=== PATIENT | male | born 1950 | race Caucasian/White ===

== ENCOUNTER 2020-06-21 14:11 | Outpatient (CLI) | payer MEDICARE ==
--- NOTE | 2020-06-21 15:06 | XRAY Report ---
PROCEDURE: Hip w/Pelvis 2-3V RT INDICATIONS: RIGHT HIP STRAIN TECHNIQUE: AP pelvis with lateral view(s) of the right hip(s). COMPARISON: None. FINDINGS: Bones: No fractures or dislocations. Pelvic ring appears intact. No suspicious bony lesions. Soft tissues: The visualized bowel gas pattern is normal. No suspicious soft tissue calcifications. IMPRESSION: There is a mild degree of hip joint osteoarthritis symmetric bilaterally but no evidence of prior trauma, and there is also degenerative disc disease that is noted at L4-5 there is moderate in severity, raising a question of whether referred pain from the lumbosacral spine to the hip is ca use of the asymmetric right-sided predominant pain syndrome. Reviewed by: Vaibhav Martínez MD on 06/21/2020 3:05 PM PDT Approved by: Vaibhav Martínez MD on 06/21/2020 3:05 PM PDT Station ID: [id number]
== END 2020-06-21 14:12 | disposition home or self-care (01) ==
LOC: DI.S 14:11
PROVIDERS: ATTEND Family Medicine
DX: M16.0 Bilateral primary osteoarthritis of hip (principal); M47.816 Spondylosis without myelopathy or radiculopathy, lumbar region

== ENCOUNTER 2020-07-27 14:42 | Outpatient (CLI) | payer MEDICARE ==
--- NOTE | 2020-07-27 15:16 | XRAY Report ---
PROCEDURE: Lumbar Spine 2 View INDICATIONS: LUMBAR STRAIN, DJD OF LUMBAR TECHNIQUE: 3 views of the lumbar spine were acquired. COMPARISON: None. FINDINGS: Bones: 5 [id number] vertebrae are present. There is there is trace retrolisthesis of L2. Sever e multilevel disc space narrowing is present throughout the lumbar spine most severe at L5-S1. Severe foraminal narrowing is noted L5-S1, moderate to severe L4-5. Multilevel anterior osteophytes are pre sent bridging at T12-L1. No vertebral body compression fractures. No suspicious bony lesions. Soft tissues: Overlying bowel gas pattern is normal. No suspicious soft tissue calcifications. IMPRESSION: Degenerative changes most notable at L5-S1. Reviewed by: Bhavana Choe MD on 07/27/2020 3:15 PM PDT Approved by: Bhavana Choe MD on 07/27/2020 3:15 PM PDT Station ID: [id number]
== END 2020-07-27 14:43 | disposition home or self-care (01) ==
LOC: DI.S 14:42
PROVIDERS: ATTEND Family Medicine
DX: M47.817 Spondylosis without myelopathy or radiculopathy, lumbosacral region (principal); S39.012A Strain of muscle, fascia and tendon of lower back, initial encounter
CPT/HCPCS: 72100

== ENCOUNTER 2021-03-14 11:15 | Emergency (ER) | payer MEDICARE ==
[2021-03-14 12:06] LABS: BASOPHILS % (AUTO) 0.5 %; EOSINOPHILS # (AUTO) 0.1 10^3/uL (0.0-0.7); EOSINOPHILS % (AUTO) 2.7 %; HCT - HEMATOCRIT 35.1 % (42.0-52.0); HGB - HEMOGLOBIN 12.1 g/dL (14.0-18.0); LYMPHOCYTES # (AUTO) 1.2 10^3/uL (1.5-3.5); LYMPHOCYTES % (AUTO) 28.9 %; MEAN CORPUSCULAR HEMOGLOBIN 37.7 pg (27.0-31.0); MEAN CORPUSCULAR HGB CONC 34.5 g/dL (32.0-36.0); MEAN CORPUSCULAR VOLUME 109.3 fL (80.0-94.0); MEAN PLATELET VOLUME 10.1 fL (7.4-11.4); MONOCYTES # (AUTO) 0.3 10^3/uL (0.0-1.0); MONOCYTES % (AUTO) 6.5 %; NEUTROPHILS # (AUTO) 2.5 10^3/uL (1.5-6.6); NEUTROPHILS % (AUTO) 61.4 %; PLT - PLATELET COUNT 88 10^3/uL (130-450); RED BLOOD COUNT 3.21 10^6/uL (4.70-6.10); RED CELL DISTRIBUTION WIDTH 13.7 % (12.0-15.0)
[2021-03-14 12:20] LABS: ALBUMIN 3.8 g/dL (3.2-5.5); ALBUMIN/GLOBULIN RATIO 0.8 (1.0-2.2); BILIRUBIN,TOTAL 1.1 mg/dL (0.2-1.0); CALCIUM 9.8 mg/dL (8.5-10.3); CREATININE 0.6 mg/dL (0.6-1.2); POTASSIUM 3.1 mmol/L (3.5-5.0); TOTAL PROTEIN 8.6 g/dL (6.7-8.2)
[2021-03-14 12:38] LABS: BILIRUBIN,URINE NEGATIVE (NEGATIVE); GLUCOSE, URINE (UA) NEGATIVE (NEGATIVE); KETONES,URINE (UA) NEGATIVE (NEGATIVE); LEUKOCYTE ESTERASE, URINE NEGATIVE (NEGATIVE); NITRITE,URINE NEGATIVE (NEGATIVE); OCCULT BLOOD,URINE NEGATIVE (NEGATIVE); PH,URINE 6.5 PH (5.0-7.5); PROTEIN,URINE NEGATIVE (NEGATIVE); UROBILINOGEN,URINE 0.2 (NORMAL) E.U./dL (NORMAL)
[2021-03-14 12:40] LABS: CLARITY,URINE CLEAR (CLEAR)
--- NOTE | 2021-03-14 13:33 | ED Physician Documentation ---
History of Present Illness - Stated complaint Stated Complaint: WEAKNESS/FATIGUE - Chief complaint Chief Complaint: General - History obtained from History obtained from: Patient, EMS - History of Present Illness Timing: Today Pain level max: 0 Pain level now: 0 - Additonal information Additional information: 70-year-old male is brought in by his today. They state that they received a phone call from his doctor last night that his platelets were low and that he may need a platelet transfusion. Has not had any bleeding. No rectal bleeding. No gingival bleeding with brushing of teeth. He does drink alcohol nightly, 3- 4 drinks per night. No weight loss. He currently feels well. Review of Systems Ten Systems: 10 systems reviewed and negative Constitutional: denies: Fever, Myalgias Ears: denies: Ear pain Respiratory: denies: Cough GI: denies: Nausea, Vomiting, Diarrhea, Hematemesis, Bloody / black stool Skin: denies: Rash Musculoskeletal: denies: Neck pain, Back pain Neurologic: denies: Focal weakness, Numbness, Headache PD PAST MEDICAL HISTORY - Past Medical History Past Medical History: No - Allergies Allergies/Adverse Reactions: Allergies Allergy/AdvReac Type Severity Reaction Status Date / Time No Known Drug Allergies Allergy Verified 03/14/21 11:43 - Living Situation Living Situation: reports: With family Living Arrangement: reports: At home - Social History Does the pt smoke?: No Does the pt drink ETOH?: Yes ETOH Use: Beer Does the pt have substance abuse?: No PD ED PE NORMAL - Vitals Vital signs reviewed: Yes - General General: Alert and oriented X 3, No acute distress, Well developed/nourished - HEENT HEENT: PERRL, Moist mucous membranes - Neck Neck: Supple, no meningeal sign - Cardiac Cardiac: RRR, Strong equal pulses - Respiratory Respiratory: No respiratory distress, Clear bilaterally - Abdomen Abdomen: Soft, Non tender, Non distended - Derm Derm: Warm and dry - Extremities Extremities: No edema, No calf tenderness / cord - Neuro Neuro: Alert and oriented X 3 - Psych Psych: Normal mood, Normal affect Results - Vitals Vitals: Vital Signs - 24 hr 03/14/21 03/14/21 11:39 13:47 Temperature 36.8 C 36.9 C Heart Rate 85 82 Respiratory 16 16 Rate Blood Pressure 142/80 H 125/80 O2 Saturation 98 100 Oxygen O2 Source Room air - Labs Labs: Laboratory Tests 03/14/21 03/14/21 03/14/21 11:59 11:59 12:25 WBC 4.0 L RBC 3.21 L Hgb 12.1 L Hct 35.1 L MCV 109.3 H MCH 37.7 H MCHC 34.5 RDW 13.7 Plt Count 88 L MPV 10.1 Neut # (Auto) 2.5 Lymph # (Auto) 1.2 L Cobb # (Auto) 0.3 Eos # (Auto) 0.1 Baso # (Auto) 0.0 Absolute Nucleated RBC 0.00 Nucleated RBC % 0.0 Sodium 138 Potassium 3.1 L Chloride 99 L Carbon Dioxide 30 Anion Gap 9.0 BUN 13 Creatinine 0.6 Estimated GFR (MDRD) 133 Glucose 126 H Calcium 9.8 Total Bilirubin 1.1 H AST 52 H ALT 28 Alkaline Phosphatase 101 Total Protein 8.6 H Albumin 3.8 Globulin 4.8 H Albumin/Globulin Ratio 0.8 L Lipase 43 Urine Color YELLOW Urine Clarity CLEAR Urine pH 6.5 Ur Specific [place] 1.020 Urine Protein NEGATIVE Urine Glucose (UA) NEGATIVE Urine Ketones NEGATIVE Urine Occult Blood NEGATIVE Urine Nitrite NEGATIVE Urine Bilirubin NEGATIVE Urine Urobilinogen 0.2 (NORMAL) Ur Leukocyte Esterase NEGATIVE Ur Microscopic Review NOT INDICATED Urine Culture Comments NOT INDICATED PD MEDICAL DECISION MAKING - ED course Complexity details: reviewed results, re-evaluated patient, considered differential, d/w patient ED course: Patient with mild pancytopenia. Concern for likely liver cirrhosis. Bone marrow suppression would be an alternate concern. Initially contacted his doctor for further information as the patient is not currently at threshold for platelet transfusion or blood transfusion. The office was closed for lunch, therefore I contacted them after they reopened. I spoke with his office staff who will follow up with his PCP. PCP was unavailable. I later spoke with his PCP and he will follow up with the patient. Information was given about local hematology groups as well. Patient counseled regarding signs and symptoms for which I believe and urgent re-evaluation would be necessary. Patient with good understanding of and agreement to plan and is comfortable going home at this time This document was made in part using voice recognition software. While efforts are made to proofread this document, sound alike and grammatical errors may occur. Departure - Departure Disposition: 01 Home, Self Care Clinical Impression: Pancytopenia Condition: Good Instructions: Thrombocytopenia Follow-Up: Austin Ventura DO [Primary Care Provider] - Within 1 week Norman Ojeda MD [Provider Admit Priv/Credential] - Norman Ojeda MD [Physician No Access] - Eduardo Schmidt MD [Physician No Access] - Eduardo Schmidt MD [Provider Admit Priv/Credential] - Comments: Your white blood cells, red blood cells and platelets are all low today. This is a condition in his pancytopenia. This may be due to conditions such as liver cirrhosis or bone marrow issues. It is recommended that you follow-up with a on call for further care. I discussed this with your primary care provider's office today and they will follow up with you as well. Return for any bleeding or head/abdomen trauma. Discharge Date/Time: 03/14/21 13:49
[2021-03-14 13:49] VITALS: BP 125/80
== END 2021-03-14 13:49 | disposition home or self-care (01) ==
LOC: ED 11:15
DX: D61.818 Other pancytopenia (principal)
CPT/HCPCS: 36415; 80053; 81001; 81003; 83690; 85025; 85610; 85730; 87086; 99283

== ENCOUNTER 2021-11-28 16:11 | Outpatient (CLI) | payer MEDICARE ==
[2021-11-28 20:07] LABS: BASOPHILS % (AUTO) 0.6 %; EOSINOPHILS # (AUTO) 0.2 10^3/uL (0.0-0.7); EOSINOPHILS % (AUTO) 7.1 %; HCT - HEMATOCRIT 35.6 % (42.0-52.0); HGB - HEMOGLOBIN 12.1 g/dL (14.0-18.0); LYMPHOCYTES # (AUTO) 0.9 10^3/uL (1.5-3.5); LYMPHOCYTES % (AUTO) 28.5 %; MEAN CORPUSCULAR HEMOGLOBIN 37.1 pg (27.0-31.0); MEAN CORPUSCULAR VOLUME 109.2 fL (80.0-94.0); MEAN PLATELET VOLUME 10.4 fL (7.4-11.4); MONOCYTES # (AUTO) 0.3 10^3/uL (0.0-1.0); MONOCYTES % (AUTO) 7.7 %; NEUTROPHILS # (AUTO) 1.8 10^3/uL (1.5-6.6); NEUTROPHILS % (AUTO) 55.8 %; PLT - PLATELET COUNT 95 10^3/uL (130-450); RED BLOOD COUNT 3.26 10^6/uL (4.70-6.10); RED CELL DISTRIBUTION WIDTH 13.9 % (12.0-15.0); WHITE BLOOD COUNT 3.2 x10^3/uL (4.8-10.8)
[2021-11-28 20:14] LABS: ALBUMIN 3.4 g/dL (3.2-5.5); ALBUMIN/GLOBULIN RATIO 0.7 (1.0-2.2); BILIRUBIN,TOTAL 1.9 mg/dL (0.2-1.0); CALCIUM 9.6 mg/dL (8.5-10.3); CREATININE 0.6 mg/dL (0.6-1.2); POTASSIUM 3.3 mmol/L (3.5-5.0); TOTAL PROTEIN 8.4 g/dL (6.7-8.2)
[2021-11-28 20:43] LABS: THYROID STIMULATING HORMONE 4.53 uIU/mL (0.34-5.60)
== END 2021-11-28 23:59 | disposition home or self-care (01) ==
LOC: LAB.S 16:11
PROVIDERS: ATTEND Physician Assistant Medical
DX: R60.0 Localized edema (principal)
CPT/HCPCS: 36415; 80053; 84443; 85025

== ENCOUNTER 2022-02-24 08:00 | Outpatient (CLI) | payer MEDICARE ==
--- NOTE | 2022-02-24 16:43 | XRAY Report ---
PROCEDURE: Ribs w/PA Chest RT INDICATIONS: RIGHT SIDED RIB PAIN TECHNIQUE: 2 views of the right ribs were acquired, along with a single view chest. COMPARISON: 02/21/2014 FINDINGS: Surgical changes and devices: None. Bones and chest wall: There is a possible nondisplaced far anterolateral right eighth rib fracture. N o other acute fracture seen. No suspicious bony lesions. Overlying soft tissues appear unremarkable. Lungs and pleura: No pleural effusions or pneumothorax. Lungs appear clear. Mediastinum: Mediastinal contours appear normal. Heart size is normal. IMPRESSION: 1. Possible nondisplaced anterolateral right eighth rib fracture. 2. Chest without acute cardiopulmonary abnormalities. No focal consolidation. No pneumothorax. Reviewed by: Xu Mueller MD on 02/24/2022 4:42 PM PDT Approved by: Xu Mueller MD on 02/24/2022 4:42 PM PDT Station ID: [id number]
== END 2022-02-24 23:59 | disposition home or self-care (01) ==
LOC: DI.S 08:00
PROVIDERS: ATTEND Physician Assistant Medical
DX: R07.81 Pleurodynia (principal); R93.7 Abnormal findings on diagnostic imaging of other parts of musculoskeletal system

== ENCOUNTER 2024-03-04 15:42 | Outpatient (CLI) | payer MEDICARE ==
--- NOTE | 2024-03-04 18:01 | XRAY Report ---
Abdomen 1 V HISTORY: 73 years of age, EDEMA TECHNIQUE: Abdomen 1 V COMPARISON: None. FINDINGS/IMPRESSION: Nonobstructive bowel gas pattern. Limited evaluation of free intraperitoneal air given supine view. Patchy airspace opacity in the left lower lung, concerning for atelectasis versus pneumonia. Recommen d further evaluation with chest radiograph indicated. Reviewed by: Julienne Pearce MD on 03/04/2024 5:59 PM PDT Approved by: Julienne Pearce MD on 03/04/2024 5:59 PM PDT Station ID: [id number]
== END 2024-03-04 15:43 | disposition home or self-care (01) ==
LOC: DI 15:42
PROVIDERS: ATTEND Registered Nurse
DX: R60.9 Edema, unspecified (principal)

== ENCOUNTER 2024-03-09 08:42 | Outpatient (CLI) | payer MEDICARE ==
--- NOTE | 2024-03-09 16:41 | XRAY Report ---
PROCEDURE: Chest 2V INDICATIONS: BREATHING DIFFICULTY TECHNIQUE: 2 views of the chest were acquired. COMPARISON: 2 views of the chest dated 02/21/2014. FINDINGS: Surgical changes and devices: None. Lungs and pleura: Airspace opacities are present at the left lung base. Mild atelectasis is likely p resent at the right lung base. No pleural effusion or pneumothorax. Mediastinum: Mediastinal contours appear normal. Heart size is normal. Bones and chest wall: No suspicious bony lesions. Overlying soft tissues appear unremarkable. IMPRESSION: Left basilar pulmonary radiopacities suspicious for aspiration/infection. Short interval follow up is recommended to exclude underlying neoplasm. Reviewed by: Eryn Perez MD on 03/09/2024 4:40 PM PDT Approved by: Eryn Perez MD on 03/09/2024 4:40 PM PDT Station ID: [id number]
== END 2024-03-09 08:43 | disposition home or self-care (01) ==
LOC: DI 08:42
PROVIDERS: ATTEND Registered Nurse
DX: R06.89 Other abnormalities of breathing (principal); R91.8 Other nonspecific abnormal finding of lung field

== ENCOUNTER 2024-03-10 10:48 | Outpatient (CLI) | payer MEDICARE ==
[2024-03-10 10:54] LABS: BASOPHILS # (AUTO) 0.1 10^3/uL (0.0-0.1); BASOPHILS % (AUTO) 0.8 %; EOSINOPHILS # (AUTO) 0.2 10^3/uL (0.0-0.7); EOSINOPHILS % (AUTO) 3.9 %; HCT - HEMATOCRIT 27.1 % (42.0-52.0); HGB - HEMOGLOBIN 8.6 g/dL (14.0-18.0); LYMPHOCYTES # (AUTO) 0.9 10^3/uL (1.5-3.5); LYMPHOCYTES % (AUTO) 15.3 %; MEAN CORPUSCULAR HEMOGLOBIN 35.1 pg (27.0-31.0); MEAN CORPUSCULAR HGB CONC 31.7 g/dL (32.0-36.0); MEAN CORPUSCULAR VOLUME 110.6 fL (80.0-94.0); MEAN PLATELET VOLUME 9.6 fL (7.4-11.4); MONOCYTES # (AUTO) 0.6 10^3/uL (0.0-1.0); MONOCYTES % (AUTO) 9.1 %; NEUTROPHILS # (AUTO) 4.3 10^3/uL (1.5-6.6); NEUTROPHILS % (AUTO) 70.4 %; PLT - PLATELET COUNT 160 10^3/uL (130-450); RED BLOOD COUNT 2.45 10^6/uL (4.70-6.10); WHITE BLOOD COUNT 6.1 x10^3/uL (4.8-10.8)
[2024-03-10 11:08] LABS: ALBUMIN 2.6 g/dL (3.2-5.5); ALBUMIN/GLOBULIN RATIO 0.6 (1.0-2.2); BILIRUBIN,TOTAL 0.7 mg/dL (0.2-1.0); CALCIUM 9.3 mg/dL (8.5-10.3); CREATININE 0.6 mg/dL (0.6-1.3); POTASSIUM 3.7 mmol/L (3.5-4.5); TOTAL PROTEIN 6.8 g/dL (6.4-8.9)
== END 2024-03-10 10:49 | disposition home or self-care (01) ==
LOC: LAB.R 10:48
PROVIDERS: ATTEND Registered Nurse
DX: K74.69 Other cirrhosis of liver (principal); R78.1 Finding of opiate drug in blood
CPT/HCPCS: 80053; 85025

== ENCOUNTER 2024-03-10 15:52 | Outpatient (CLI) | payer MEDICARE | END 2024-03-10 22:16 | disposition home or self-care (01) | LOC: EMS 15:52 | DX: R10.84 Generalized abdominal pain (principal); R14.0 Abdominal distension (gaseous); R23.1 Pallor; R18.8 Other ascites | CPT/HCPCS: A0425; A0429 ==

== ENCOUNTER 2024-03-10 15:57 | Emergency (ER) | payer MEDICARE ==
--- NOTE | 2024-03-10 16:51 | ED Physician Documentation ---
History of Present Illness - Stated complaint Stated Complaint: LIVER FAILURE - Chief complaint Chief Complaint: Abd Pain - History obtained from History obtained from: Patient - History of Present Illness Timing: How many weeks ago (several weeks) Pain level max: 5 Pain level now: 1 - Additonal information Additional information: 73-year-old male with a history of presumed alcoholic cirrhosis presents to the emergency department with swelling in his bilateral legs and abdomen. No difficulty breathing or speaking. He states that his abdomen feels tense. No fevers. No chills. No vomiting. No diarrhea or constipation. Nothing makes it better or worse. Does not take any diuretics. He had labs performed earlier today. Patient states usually he only has pain when he eats or drinks. He states he is not having much pain now. He has a referral pending for gastroenterology. Patient states that he was a heavy drinker in the past. He states he still "drinks a few beers" Review of Systems Constitutional: denies: Fever, Chills Throat: denies: Sore throat Cardiac: denies: Chest pain / pressure, Palpitations Respiratory: denies: Dyspnea, Cough, Wheezing GI: denies: Nausea, Vomiting, Diarrhea : denies: Dysuria, Frequency, Hesitancy Skin: denies: Rash Musculoskeletal: denies: Neck pain, Back pain Neurologic: denies: Headache PD PAST MEDICAL HISTORY - Past Medical History Past Medical History: Yes Cardiovascular: Hypertension Respiratory: COPD GI: Cirrhosis - Past Surgical History Past Surgical History: Yes Ortho: Carpal Tunnel surgery, Spine surgery - Present Medications Home Medications: Ambulatory Orders Medication Instructions Recorded Confirmed Albuterol Sulf [Ventolin Hfa] 2 puffs IH Q6HR PRN 03/10/24 03/10/24 Azithromycin 250 mg PO BID 03/10/24 03/10/24 Benzonatate 200 mg PO Q8HR PRN 03/10/24 03/10/24 Budesonide/Formoterol Fumarate 2 puffs IH BID 03/10/24 03/10/24 [Breyna 160-4.5 Mcg Inhaler] Buprenorphine HCl/Naloxone HCl 1 tab SL TID 03/10/24 03/10/24 [Suboxone 8-2 mg Tab] Ferrous Sulfate [Feosol] 325 mg PO DAILY 03/10/24 03/10/24 Furosemide [Lasix] 20 mg PO DAILY #30 tablet 03/10/24 Lactobacillus Combination No.4 1 each PO DAILY 03/10/24 03/10/24 [Probiotic] Multivitamin with Iron 1 each PO DAILY 03/10/24 03/10/24 [Multivitamins with Iron] Naloxone HCl Nasal [Narcan Nasal] 4 mg NS ONCE PRN 03/10/24 03/10/24 Nicotine 7 mg Patch [Nicoderm] 1 each TOP Q24H 03/10/24 03/10/24 Simethicone [Mylicon] 80 mg PO TID PRN 03/10/24 03/10/24 Spironolactone [Aldactone] 50 mg PO DAILY #30 tablet 03/10/24 amLODIPine [Norvasc] 5 mg PO DAILY 03/10/24 03/10/24 guaiFENesin [Guaifenesin ER] 600 mg PO BID PRN 03/10/24 03/10/24 - Allergies Allergies/Adverse Reactions: Allergies Allergy/AdvReac Type Severity Reaction Status Date / Time No Known Drug Allergies Allergy Verified 03/10/24 16:15 - Social History Does the pt smoke?: No Smoking Status: Never smoker Does the pt drink ETOH?: Yes Does the pt have substance abuse?: No PD ED PE NORMAL - Vitals Vital signs reviewed: Yes - General General: Alert and oriented X 3, No acute distress - HEENT HEENT: PERRL, Moist mucous membranes - Neck Neck: Supple, no meningeal sign - Cardiac Cardiac: RRR - Respiratory Respiratory: No respiratory distress, Clear bilaterally - Abdomen Abdomen: Soft, Non tender, Other (Moderate distention.) - Back Back: No CVA TTP, No spinal TTP - Derm Derm: Warm and dry - Extremities Extremities: Other (2+ bilateral pitting edema) - Neuro Neuro: Alert and oriented X 3 - Psych Psych: Normal mood, Normal affect Results - Vitals Vitals: Vital Signs - 24 hr 03/10/24 16:03 Temperature 36.7 C Heart Rate 101 H Respiratory 22 Rate Blood Pressure 150/84 H O2 Saturation 93 Oxygen O2 Source Room air PD Medical Decision Making - ED course Complexity details: reviewed results, re-evaluated patient, considered differential, d/w patient ED course: 73-year-old male with ascites secondary to alcoholic cirrhosis as well as swelling in his legs. Patient had outpatient labs drawn earlier today. Has a mild anemia, heme globin 8.6. Does not require transfusion. His last blood work here was 2 years ago and hemoglobin was 12. Sodium mildly low at 134. Creatinine is normal at 0.6. Liver tests mildly elevated. Low albumin. Bedside ultrasound confirms ascites. No indication for emergent paracentesis. Recommend he have this scheduled with radiology. He is not on any diuretics, therefore we will start him on 50 mg of spironolactone daily along with 20 mg of Lasix. If these need to be increased in 5 to 7 days to 100 mg of spironolactone daily and 40 mg of Lasix, this can be done by his primary care provider. Patient is not having any significant pain here. No fevers. No hypoxia. No respiratory distress. No indication for emergent paracentesis. Patient is comfortable starting the diuretics. He will be discharged back to his group home facility. Patient counseled regarding signs and symptoms for which I believe and urgent re-evaluation would be necessary. Patient with good understanding of and agreement to plan and is comfortable going home at this time This document was made in part using voice recognition software. While efforts are made to proofread this document, sound alike and grammatical errors may occur. Departure - Departure Disposition: Home, Self Care Clinical Impression: Ascites Qualifiers: Ascites type: due to alcoholic cirrhosis Qualified Code(s): K70.31 - Alcoholic cirrhosis of liver with ascites Liver cirrhosis Qualifiers: Hepatic cirrhosis type: alcoholic cirrhosis Ascites presence: with ascites Qualified Code(s): K70.31 - Alcoholic cirrhosis of liver with ascites Condition: Good Instructions: ED Ascites Follow-Up: your,doctor in 3 days [Other] Prescriptions: Spironolactone [Aldactone] 50 mg PO DAILY #30 tablet Furosemide [Lasix] 20 mg PO DAILY #30 tablet Comments: Your prescriptions were sent electronically to [facility]. You were given your first dose of Lasix and spironolactone today. Please make sure that you are taking these medications daily. If you are still having significant swelling, your doctor may need to increase this to 100 mg of spironolactone daily and 40 mg of Lasix daily. Your doctor may want to schedule a paracentesis with radiology here. They can send a referral for this and this can be a scheduled procedure to remove fluid from your abdomen. Forms: PCP List
[2024-03-10] MEDS: SPIRONOLACTONE 25 MG TABLET PO STA (17:07)
[2024-03-10] MEDS: FUROSEMIDE 20 MG TABLET PO STA (17:07)
[2024-03-10 17:13] VITALS: BP 131/81; O2SAT 97
== END 2024-03-10 17:34 | disposition home or self-care (01) ==
LOC: EDUNIT# → ED 15:57
DX: K70.31 Alcoholic cirrhosis of liver with ascites (principal); R60.0 Localized edema; D64.9 Anemia, unspecified; R78.1 Finding of opiate drug in blood
CPT/HCPCS: 80053; 85025; 99283; 99284; A9270

== ENCOUNTER 2024-04-18 14:16 | Outpatient (CLI) | payer MEDICARE ==
[2024-04-18 20:16] LABS: BASOPHILS % (AUTO) 0.7 %; EOSINOPHILS # (AUTO) 0.2 10^3/uL (0.0-0.7); EOSINOPHILS % (AUTO) 4.3 %; HGB - HEMOGLOBIN 10.5 g/dL (14.0-18.0); LYMPHOCYTES # (AUTO) 0.9 10^3/uL (1.5-3.5); LYMPHOCYTES % (AUTO) 21.2 %; MEAN CORPUSCULAR HEMOGLOBIN 33.1 pg (27.0-31.0); MEAN CORPUSCULAR HGB CONC 31.8 g/dL (32.0-36.0); MEAN CORPUSCULAR VOLUME 104.1 fL (80.0-94.0); MEAN PLATELET VOLUME 10.3 fL (7.4-11.4); MONOCYTES # (AUTO) 0.3 10^3/uL (0.0-1.0); MONOCYTES % (AUTO) 8.1 %; NEUTROPHILS # (AUTO) 2.7 10^3/uL (1.5-6.6); NEUTROPHILS % (AUTO) 65.5 %; PLT - PLATELET COUNT 115 10^3/uL (130-450); RED BLOOD COUNT 3.17 10^6/uL (4.70-6.10); WHITE BLOOD COUNT 4.2 x10^3/uL (4.8-10.8)
[2024-04-18 20:42] LABS: ALBUMIN 3.3 g/dL (3.2-5.5); ALBUMIN/GLOBULIN RATIO 0.7 (1.0-2.2); ALKALINE PHOSPHATASE 102 IU/L (42-121); ALT ALANINE AMINOTRANSFERASE 20 IU/L (10-60); AST ASPARTATE AMINOTRANSFERASE 45 IU/L (10-42); BUN - BLOOD UREA NITROGEN 17 mg/dL (6-20); CALCIUM 9.9 mg/dL (8.5-10.3); CARBON DIOXIDE - CO2 28 mmol/L (21-32); CHLORIDE 100 mmol/L (101-111); CHOL/HDL RATIO 2.7 (<5.0); CHOLESTEROL 125 mg/dL; CREATININE 0.9 mg/dL (0.6-1.3); GFR - MDRD 82 (>89); GLUCOSE 195 mg/dL (74-104); HDL CHOLESTEROL 46 mg/dL; LDL CHOLESTEROL,CALCULATED 57 mg/dL; LDL/HDL RATIO 1.2 (<3.6); POTASSIUM 3.8 mmol/L (3.5-4.5); SODIUM 132 mmol/L (135-145); TRIGLYCERIDES 108 mg/dL (48-352); VLDL CHOLESTEROL 22 mg/dL
[2024-04-18 20:46] LABS: THYROID STIMULATING HORMONE 4.23 uIU/mL (0.34-5.60)
[2024-04-18 21:02] LABS: ESTIMATED AVERAGE GLUCOSE 91 mg/dL (70-100); HEMOGLOBIN A1c% 4.8 % (4.27-6.07)
== END 2024-04-18 14:17 | disposition home or self-care (01) ==
LOC: LAB.S 14:16
PROVIDERS: ATTEND Family Medicine
DX: R53.83 Other fatigue (principal)
CPT/HCPCS: 36415; 80053; 80061; 83036; 83721; 84153; 84403; 84443; 85025